=== PATIENT | male | born 1995 | race African-American/Black ===

== ENCOUNTER 2024-07-19 01:09 | Emergency (ER) | payer SELFPAY ==
[2024-07-19 01:16] VITALS: BP 122/86; PULSE 82; RESP 16; TEMP 98.1; BMI 20.3
[2024-07-19] MEDS ORDERED: KETOROLAC TROMETHAMINE 60 MG/2 ML VIAL ONE (01:31)
[2024-07-19] MEDS: KETOROLAC TROMETHAMINE 30 MG/1 ML VIAL IM ONE (01:40)
[2024-07-19 03:56] LABS: HIV INTERPRETATION NEGATIVE (NEGATIVE)
[2024-07-19 03:57] LABS: HCV DIAGNOSTIC IN-HOUSE W/RFLX NON-REACTIVE (NONREACTIVE)
== END 2024-07-19 06:00 | disposition home or self-care (01) ==
LOC: JER 01:09
PROC: 3E0233Z Introduction of Anti-inflammatory into Muscle, Percutaneous Approach (ICD-10-PCS; principal; 2024-07-19)
DX: M25.511 Pain in right shoulder (principal); M25.521 Pain in right elbow; M25.531 Pain in right wrist; M79.641 Pain in right hand; V43.52XA Car driver injured in collision with other type car in traffic accident, initial encounter; Y92.410 Unspecified street and highway as the place of occurrence of the external cause
CPT/HCPCS: 36415; 73030-TC-RT-FY; 73070-TC-RT-FY; 73110-TC-RT-FY; 73130-TC-RT-FY; 86803; 87389; 99284-25